=== PATIENT | female | born 1950 | race Caucasian/White ===

== ENCOUNTER 2017-11-05 07:42 | Day surgery (SDC) | payer MEDICARE, OTHER ==
[~2017-11-05] VITALS: Ht 160 cm; Wt 61.7 kg
[~2017-11-05 07:42] MED LIST: CHOLEST OFF450 MG PO
[2017-11-05] MEDS ORDERED: VITAMIN K100 MCG PO (08:03)
[2017-11-05] MEDS ORDERED: ZANTAC 7575 MG PO (08:03)
--- NOTE | 2017-11-05 09:32 | NUR ---
11/05/17 0932 Ly Randolph 3928-PATIENT ARRIVED TO PACU ON 3L NC WEANED TO 2L NC O2 SAT 100% PATIENT REACTIVE TO VOICE OPENING EYES VERY DROWSY BACK TO SLEEP. RR EVEN. ABDOMEN SOFT.
--- NOTE | 2017-11-05 10:17 | OR ---
[facility] [address], [place] [address] Signed DATE OF OPERATION: 11/05/2017 SURGEON: Rayna Ahumada MD PREOPERATIVE DIAGNOSES: 1. Personal history of colonic polyps. 2. Sister with colonic polyps at age 66. 3. Maternal grandfather with colon cancer. 4. Constipation and diarrhea. POSTOPERATIVE DIAGNOSES: 1. Moderate internal hemorrhoids. 2. 5 mm polyps x2 at 25 cm. 3. Mildly narrowed and tortuous sigmoid colon. PROCEDURE: Colonoscopy with hot biopsy. ESTIMATED BLOOD LOSS: None. INDICATIONS: Radha is a 67-year-old lady who was asked to see me for followup colonoscopy. She has had colonic polyps removed herself and her sister also had colonic polyps removed at age 66. Radha also explained that her maternal grandfather had colon cancer, but refused surgery. She also has some trouble with constipation and diarrhea. I gave her a pamphlet on colonoscopy and we looked at that together along with the risks including, but not limited to gas bloating, crampy abdominal pain, bleeding, perforation, requiring surgery, and missed diagnosis. She had expressed understanding and wished to proceed. PROCEDURE NOTE: Radha was taken into our endoscopy suite and placed in the left lateral decubitus position. She was given IV sedation with 10 mg of Versed and 150 mcg of fentanyl. A digital rectal exam was performed and this was unremarkable. The adult colonoscope was introduced and advanced all around into the cecum under direct visualization of camera. It took some extra sedation as well as abdominal compression in order to advance the scope. In particular, she is slight of build and her sigmoid colon is somewhat tortuous and narrow and it took extra time to get through there and in the end, her rectum was too small to retroflex the scope. Fortunately, her prep was good. We could easily identify the appendiceal orifice and the [place]'s foot. We had taken pictures throughout Electronically Signed By: RAYNA AHUMADA MD 11/05/17 1017 PATIENT NAME: RADHA DEL ANGEL OPERATIVE REPORT DATE OF : 50 REPORT #: [id number] PHYSICIAN: RAYNA AHUMADA MD PCP: NO PRIMARY CARE PHYSICIAN REPORT IS CONFIDENTIAL AND NOT TO BE RELEASED WITHOUT AUTHORIZATION [facility] [address], [place] [address] Signed for photodocumentation. The scope was then slowly withdrawn and we found two small polyps back at 25 cm. There were easily removed with a hot biopsy forceps. We had withdrawn the scope carefully through the anal canal and she clearly has moderate internal hemorrhoid columns. After this, the gas was suctioned out and the colonoscope removed. Radha tolerated the procedure quite well. RECOMMENDATIONS: I will see Radha back in my office in 7 to 14 days to review her results. At minimum, she will stay on the 5-year rotation. MD NAVID Jurado/HERMANL /[id number] cc: MD Faith Jurado PA Copies: RAYNA AHUMADA MD, LINDA PA ~ Electronically Signed By: RAYNA AHUMADA MD 11/05/17 1017 PATIENT NAME: RADHA DEL ANGEL OPERATIVE REPORT DATE OF : 50 REPORT #: [id number] PHYSICIAN: RAYNA AHUMADA MD PCP: NO PRIMARY CARE PHYSICIAN REPORT IS CONFIDENTIAL AND NOT TO BE RELEASED WITHOUT AUTHORIZATION
== END 2017-11-05 10:46 | disposition home or self-care (01) ==
LOC: OPS 07:42 → DS 07:42 → OPS 09:00
PROVIDERS: Colon & Rectal Surgery
PROC: 0DBE8ZZ Excision of Large Intestine, Via Natural or Artificial Opening Endoscopic (ICD-10-PCS; principal; 2017-11-05 09:00)
DX: K63.5 Polyp of colon (principal); K52.9 Noninfective gastroenteritis and colitis, unspecified; K64.8 Other hemorrhoids; K56.699 Other intestinal obstruction unspecified as to partial versus complete obstruction; Z80.0 Family history of malignant neoplasm of digestive organs; Z83.71 Family history of colonic polyps; Z79.899 Other long term (current) drug therapy
CPT/HCPCS: 88305; 99153; G0500; J2250; J3010; J7120